=== PATIENT | male | born 1965 | race Caucasian/White ===

== ENCOUNTER 2023-06-09 00:21 | Day surgery (SDC) | payer BC, SELFPAY ==
[2023-05-31 12:55] VITALS: BMI 40.4
[2023-06-09 10:31] VITALS: BP 143/84; PULSE 77; RESP 20; TEMP 36.6; O2SAT 98; BMI 40.7
[2023-06-09] MEDS: LACTATED RINGERS 1,000 ML 150 ML IV CONT (10:39)
--- NOTE | 2023-06-09 10:51 | P.PNAN_ITS ---
Anes - Initial Pre Proc Eval Procedure: Operation Date: 06/09/23 11:30 Proposed Procedures p Colonoscopy - Lucas Jefferson MD Date/Time: 06/09/23 10:51 Surgeon: Lucas Jefferson MD Pre Op Diagnosis: hx colon polyps Patient Data Age: 58 Gender: M Height: 1.73 m Weight: 121.6 kg Last Vital Signs Temp 97.8 F 06/09/23 10:31 Pulse 77 06/09/23 10:31 Resp 20 06/09/23 10:31 BP 143/84 H 06/09/23 10:31 Pulse Ox 98 06/09/23 10:31 O2 Del Method Room Air 06/09/23 10:31 Allergies Allergy/AdvReac Type Severity Reaction Status Date / Time No Known Allergies Allergy Verified 06/09/23 10:30 Home Medications Medication Instructions Recorded Confirmed Type tadalafil 5 mg tablet 5 mg PO DAILY 12/10/19 05/31/23 History atorvastatin 20 mg tablet 20 mg PO DAILY #90 tabs 04/13/23 05/31/23 Rx Patient hx anesthesia problems: none Family hx anesthesia problems: none Results Review: All pre-operative results and documents have been reviewed as part of the pre- operative evaluation. [facility] Past Medical History Medical History Body mass index (BMI) 40.0-44.9, adult History of smoking Hyperlipidemia, unspecified Impaired glucose tolerance Screening for colon cancer Family History Family History Father Malignant neoplasm of prostate Mother Family history of malignant neoplasm of breast in first degree relative Social History Social History (Updated 06/27/22 @ 13:09 by Amee Parekh MA) Smoking packs per day: 1 Smoking cigarettes per day: 20.0 Years smoked: 30 Smoking pack-years: 30.00 Smoking status: Former smoker Alcohol intake: current Drinks per week: 21 Substance use type: does not use Lack of Transportation: No Lack of Food: Never True Current Housing: I Have Housing Concerned About Future Housing: No Difficulty Paying Gas/Electric Bills: No Difficulty Paying for Meds: No Currently Unemployed: No Education: High School Diploma/GED Difficulty w/ Childcare or Family Care: No Living arrangements: other Additional living arrangements comments: with charlotte Holloway Final PreProcedure Day of Procedure 06/09/23 10:51 Patient weight: morbidly obese Heart: regular rate and rhythm Lungs: clear to auscultation Airway: Mallampati scale class II Neurological: alert and oriented Last oral intake: >/= 8 hours ASA classification: III Emergent: no Anesthetic plan: proceed Anesthesia type and monitoring: general GIVS and standard monitoring Results Review: All pre-operative results and documents have been reviewed as part of the pre- operative evaluation. Informed Consent: The patient's anesthetic plan and its attendant risks and benefits were discussed with the patient/family/POA. Questions were solicited and answers provided to the satisfaction of the patient/family/POA.
--- NOTE | 2023-06-09 11:20 | PM.HPGS ---
History of Present Illness History of Present Illness Consent: Risks, benefits, and alternatives have been discussed and questions answered. Patient agrees to proceed with procedure. Chief complaint: hx colon polyps Narrative: Son Singh is a 58 year old male Presents for screening colonoscopy. Patient has current weight appetite bowel movements are normal. Patient denies abdominal pain. She has had no bleeding. Family history noncontributory. Patient has a history of adenomatous colon polyp by previous colonoscopy in 2013. Review of Systems Review of Systems: Review of systems noncontributory. [facility] Past Medical History Medical History Body mass index (BMI) 40.0-44.9, adult History of smoking Hyperlipidemia, unspecified Impaired glucose tolerance Screening for colon cancer Family History Family History Father Malignant neoplasm of prostate Mother Family history of malignant neoplasm of breast in first degree relative Social History Social History (Updated 06/27/22 @ 13:09 by Amee Parekh MA) Smoking packs per day: 1 Smoking cigarettes per day: 20.0 Years smoked: 30 Smoking pack-years: 30.00 Smoking status: Former smoker Alcohol intake: current Drinks per week: 21 Substance use type: does not use Lack of Transportation: No Lack of Food: Never True Current Housing: I Have Housing Concerned About Future Housing: No Difficulty Paying Gas/Electric Bills: No Difficulty Paying for Meds: No Currently Unemployed: No Education: High School Diploma/GED Difficulty w/ Childcare or Family Care: No Living arrangements: other Additional living arrangements comments: with sp Meds Home Medications and Allergies Home Medications Medication Instructions Recorded Confirmed Type tadalafil 5 mg tablet 5 mg PO DAILY 12/10/19 05/31/23 History atorvastatin 20 mg tablet 20 mg PO DAILY #90 tabs 04/13/23 05/31/23 Rx Allergies Allergy/AdvReac Type Severity Reaction Status Date / Time No Known Allergies Allergy Verified 06/09/23 10:30 Vital Signs Vital Signs - 24 hr 06/09/23 10:31 Temperature 97.8 F Pulse Rate 77 Respiratory Rate 20 Blood Pressure 143/84 H Pulse Oximetry 98 Oxygen Delivery Room Air Exam Narrative: Physical exam reveals patient to be alert. Vital signs stable. HEENT exam is unremarkable. Patient is anicteric. Lungs are clear to auscultation and percussion. Heart is without murmur or extra sounds. Abdomen bowel sounds are present soft nontender with no hepatosplenomegaly. Digital external rectal exam is normal. Assessment and Plan Assessment and plan (1) Screening for colon cancer: Code(s): Z12.11 - Encounter for screening for malignant neoplasm of colon Status: Acute Assessment and Plan: Patient presents for screening colonoscopy. He does have a history of colon polyps in 2013. Further recommendations may be given after endoscopy.
[2023-06-09 11:46] VITALS: BP 114/89; PULSE 70; RESP 25; O2SAT 98
[2023-06-09 11:56] VITALS: BP 134/74; PULSE 63; RESP 18; O2SAT 98
[2023-06-09 12:06] VITALS: BP 151/78; PULSE 66; RESP 20; O2SAT 98
== END 2023-06-09 12:15 | disposition home or self-care (01) ==
PROVIDERS: PCP Family Medicine; Visit Provider Internal Medicine Gastroenterology
PROC: 0DJD8ZZ Inspection of Lower Intestinal Tract, Via Natural or Artificial Opening Endoscopic (ICD-10-PCS; CPT 45378; principal; 2023-06-09 11:30)
DX: Z12.11 Encounter for screening for malignant neoplasm of colon (principal); K62.1 Rectal polyp; K64.8 Other hemorrhoids; E78.5 Hyperlipidemia, unspecified; Z87.891 Personal history of nicotine dependence; E66.01 Morbid (severe) obesity due to excess calories; Z68.41 Body mass index [BMI] 40.0-44.9, adult
CPT/HCPCS: 45385; 88305; J2704; J7120

== ENCOUNTER 2024-06-17 09:13 | Outpatient (CLI) | payer BC, SELFPAY ==
--- NOTE | ~2024-06-17 | CT_ITS ---
CT Scan of the Chest without Contrast: Clinical Indication: Lung cancer screening, nicotine dependence Technique: Contiguous sections were acquired throughout the chest without intravenous contrast. Dose reduction technique was used on this scan by utilizing automated exposure control and iterative recon struction technique. The dose-length product (DLP) was 360.48 mGy-cm. Findings: There is no evidence of any significant mediastinal, hilar or axillary lymphadenopathy. Coronary anette ry calcifications are present. There is no evidence of pleural or pericardial effusion. The lungs are clear. No pulmonary nodules or infiltrates are noted. Images through the upper abdomen reveal 9 mm right adrenal nodule, most likely adenoma. Impression: Lung RADS 1: Negative. 12 month follow-up screening CT advised. Reviewed, dictated and finalized at location . Impression: Lung RADS 1: Negative. 12 month follow-up screening CT advised.
== END 2024-06-17 09:14 | disposition home or self-care (01) ==
LOC: MICIMG 09:14
PROVIDERS: PCP Family Medicine; Visit Provider Family Medicine
DX: Z12.2 Encounter for screening for malignant neoplasm of respiratory organs (principal); Z87.891 Personal history of nicotine dependence
CPT/HCPCS: 71271

== ENCOUNTER → 2024-10-01 11:37 | Outpatient (REF) | payer BC, SELFPAY ==
--- OUTSIDE RECORDS SUMMARY | 2024-10-01 12:52 | XMS_ITS | Clinical Summary ---
Author Organization [facility] Address [address] [place] [id number] Care Team Providers Care Synthetic Filament Extruder Name Role Phone Kranthi Waite DO Primary Care Provider [phone] Allergies No known active allergies Medications atorvastatin (LIPITOR) 20 mg tablet Take 20 mg by mouth daily Active tadalafiL (CIALIS) 5 mg tabletIndication s:Erectile dysfunction, unspecified erectile dysfunction type Take 1 tablet (5 mg total) by mouth daily 90 tablet 3 08/06/2021 Active Active Problems Problem Noted Date Diagnosed Date Malignant neoplasm of prostate 08/06/2020 Family History Medical History Relation Name Comments ALS Father Family history of amyotrophic lateral sclerosis - (Added by TW Conv) Prostate cancer Father Prostate can cer - (Added by TW Conv) Breast cancer Mother Family history of malignant neoplasm of breast - (Added by TW Conv) Relation Name Status Comments Father Mother Social History Tobacco Use Types Packs/Day Years Used Date Smoking Tobacco: Never Smokeless Tobacco: Never Alcohol Use Standard Drinks/Week Comments No 0 (1 standard drink = 0.6 oz pur e alcohol) Sex and Gender Information Value Date Recorded Sex Assigned at Not on file 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 Gender Identity Not on file Sexual Orientation Not on file Obstetrics History Last Filed Vital Signs Vital Sign Reading Time Taken Comments Blood Pressure 109/60 03/25/2014 4:25 AM CDT Pulse 66 03/25/2014 4:25 AM CDT Temperature - - Respiratory Rate - - Oxygen Saturation 98% 03/25/2014 4:25 AM CDT Inhaled Oxygen Concentration - - Weight 115.7 kg (254 lb 15.7 oz) 03/24/2014 2:25 PM CDT Height 172.7 cm (5' 8 ) 03/24/2014 2:25 PM CDT Body Mass Index 38.77 03/24/2014 2:25 PM CDT Plan of Treatment Not on file Insurance BLUE [facility] CHO[employer] OOS [email or web address] ACCESS CHOICE [employer] [facility] [employer] OOS [employer] ACCESS CHOICE Care Teams Synthetic Filament Extruder Relationship Specialty Start Date End Date Kranthi Wiate DO PCP - General Internal Medicine 08/07/20
--- OUTSIDE RECORDS SUMMARY | 2024-10-01 12:52 | XMS_ITS | Referral Summary ---
Author Organization [facility] Address [address] [place] [id number] Care Team Providers Care Food Service Director Name Role Phone Kranthi Waite DO Primary Care Provider Allergies No known active allergies Medications atorvastatin (LIPITOR) 20 mg tablet Take 20 mg by mouth daily Active tadalafiL (CIALIS) 5 mg tabletIndication s:Erectile dysfunction, unspecified erectile dysfunction type Take 1 tablet (5 mg total) by mouth daily 90 tablet 3 08/06/2021 Active Active Problems Problem Noted Date Diagnosed Date Malignant neoplasm of prostate 08/06/2020 Social History Tobacco Use Types Packs/Day Years Used Date Smoking Tobacco: Never Smokeless Tobacco: Never Alcohol Use Standard Drinks/Week Comments No 0 (1 standard drink = 0.6 oz pur e alcohol) Sex and Gender Information Value Date Recorded Sex Assigned at Not on file 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 Gender Identity Not on file Sexual Orientation Not on file Last Filed Vital Signs Vital Sign Reading [...] of Treatment Not on file Insurance BLUE [facility] CHOICE OOS [place] ACCESS CHOICE [facility] CHOICE OOS ANTHEM ACCESS CHOICE Member Subscriber Plan / Payer (Ef fective 2022-Present) Name:Son Singh Relation to Subscriber:Self Name:Son Singh Payer ID:[id number] (NAIC) Type:[employer] Address: [facility] [address] [id number] Care Teams Food Service Director Relationship Specialty Start Date End Date Kranthi Waite DO PCP - General Internal Medicine 08/07/20
== END ==
LOC: ANHLAB 11:37
PROVIDERS: Visit Provider Plastic Surgery
DX: D03.4 Melanoma in situ of scalp and neck (principal)
CPT/HCPCS: 88305

== ENCOUNTER → 2024-10-15 14:55 | Outpatient (REF) | payer BC, SELFPAY ==
--- OUTSIDE RECORDS SUMMARY | 2024-10-15 17:25 | XMS_ITS | Clinical Summary ---
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
--- OUTSIDE RECORDS SUMMARY | 2024-10-15 17:25 | XMS_ITS | Referral Summary ---
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
== END ==
LOC: ANHLAB 14:55
PROVIDERS: PCP Family Medicine; Visit Provider Physician Assistant Surgical
DX: L90.5 Scar conditions and fibrosis of skin (principal); D23.61 Other benign neoplasm of skin of right upper limb, including shoulder
CPT/HCPCS: 88305; 88342

== ENCOUNTER → 2025-02-24 15:26 | Outpatient (REF) | payer BC, SELFPAY ==
--- NOTE | 2025-02-24 15:26 | S_PTH ---
PATIENT: Son Singh LOC: [facility] U#:[id number] AGE/SX: 60/M ROOM: RE02/24/[address]: Carola Moore MD : [id number] BED: DIS: SPEC #: [id number] RECD: 02/25/25 07:51 STATUS: JANI REKoffi #: [id number] TIMI: 02/24/25 15:[address]: Carola Moore DEPT: [facility] Surgical RECD BY: Juventino Mari ENTERED: 02/25/25 07:52 SP TYPE: Surgical OTHR DR: Conner Devine MD Tissues: A - Skin Procedures: Hematoxylin and Eosin Stain Gross and Microscopic Level 4
== END ==
LOC: ANHLAB 15:26
PROVIDERS: PCP Family Medicine; Visit Provider Plastic Surgery
DX: D22.5 Melanocytic nevi of trunk (principal)
CPT/HCPCS: 88305

== ENCOUNTER 2025-06-19 08:16 | Outpatient (CLI) | payer BC, SELFPAY ==
--- NOTE | ~2025-06-19 | CT_ITS ---
EXAMINATION: CT lung screening DATE: 06/19/2025 08:32 INDICATION: Personal history of nicotine dependence TECHNIQUE: Computed tomography (CT) of the chest was performed without intravenous contrast. The dose-length product was 391.06 mGy-cm. Automated exposure control and iterative reconstruction technique were employed. COMPARISON: CT dated 06/17/2024 FINDINGS: No significant pleural or pericardial effusion. Heart size normal. Mild atherosclerosis of the aorta and coronary arteries. No thoracic lymphadenopathy. No axillary lymphadenopathy. Upper abdomen is unremarkable. There are small 2 mm left upper lobe nodules. No focal airspace consolidation. N o endobronchial lesions. No pneumothorax. Mild thoracic spondylosis. Accentuated thoracic kyphosis. IMPRESSION: 1. Lung-RADS category 2: Benign appearance or behavior. Continue annual screening with noncontrast low-dose chest CT in 12 months. Reviewed, dictated and finalized at location C. IMPRESSION: 1. Lung-RADS category 2: Benign appearance or behavior. Continue annual screeni ng with noncontrast low-dose chest CT in 12 months.
== END 2025-06-19 08:17 | disposition home or self-care (01) ==
LOC: MICIMG 08:17
PROVIDERS: PCP Family Medicine; Visit Provider Family Medicine
DX: Z12.2 Encounter for screening for malignant neoplasm of respiratory organs (principal); I10 Essential (primary) hypertension; E78.5 Hyperlipidemia, unspecified; R73.02 Impaired glucose tolerance (oral); Z79.899 Other long term (current) drug therapy; Z87.891 Personal history of nicotine dependence
CPT/HCPCS: 71271